=== PATIENT | male | born 1985 | race Caucasian/White ===

== ENCOUNTER 2021-02-16 16:11 | Emergency (ER) | payer OTHER ==
[~2021-02-16] VITALS: Ht 175.3 cm; Wt 69.8 kg
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
[2021-02-16] MEDS ORDERED: CLOZAPINE100 M1 PO (16:27)
[2021-02-16] MEDS ORDERED: COLACE100 MG PO (16:28)
[2021-02-16] MEDS ORDERED: CLOZAPINE ODT150 MG PO (16:28)
[2021-02-16] MEDS ORDERED: DEPAKOTE ER250 MG PO (16:28)
[2021-02-16] MEDS ORDERED: HALOPERIDOL10 MG PO (16:29)
[2021-02-16] MEDS ORDERED: MUCINEX600 MG PO (16:30)
[2021-02-16] MEDS ORDERED: INVEGA SUS234 MG/1.5 IM (16:30)
[2021-02-16] MEDS ORDERED: PROPRANOLOL 20M20 M1 PO (16:33)
[2021-02-16] MEDS ORDERED: DESYREL150 MG PO (16:33)
[2021-02-16] MEDS ORDERED: CEPHALEXIN500 MG PO (17:21)
[2021-02-16 17:34] VITALS: BP 121/78
== END 2021-02-16 17:34 | disposition home or self-care (01) ==
LOC: ER 16:11
DX: S01.21XA Laceration without foreign body of nose, initial encounter (principal); F17.200 Nicotine dependence, unspecified, uncomplicated; Z79.899 Other long term (current) drug therapy; Z79.1 Long term (current) use of non-steroidal anti-inflammatories (NSAID); Z79.891 Long term (current) use of opiate analgesic; W22.8XXA Striking against or struck by other objects, initial encounter; Y93.89 Activity, other specified; Y92.89 Other specified places as the place of occurrence of the external cause; Y99.8 Other external cause status